=== PATIENT | female | born 1960 | race Asian ===

== ENCOUNTER → 2016-11-21 | Outpatient (CLI) | payer OTHER ==
[2016-11-21 07:58] LABS: BASOPHIL % 0.7 % (0-2); PLATELET COUNT 205 x10^3mcL (130-400); RED CELL DISTRIBUTION WIDTH 12.9 % (11.5-14.5)
[2016-11-21 08:16] LABS: ALBUMIN 3.9 g/dL (3.4-5.0); ALKALINE PHOSPHATASE 63 U/L (46-116); ALT/SGPT 28 U/L (14-59); AST/SGOT 14 U/L (15-37); BILIRUBIN TOTAL 0.3 mg/dL (0.20-1.00); C REACTIVE PROTEIN 0.4 mg/dL (<=0.9); CALCIUM 8.8 mg/dL (8.5-10.1); CARBON DIOXIDE 28.4 mmol/L (21-32); CHLORIDE SERUM 102 mmol/L (98-107); CREATININE SERUM 0.9 mg/dL (0.6-1.0); GFR1 > 60 mL/min; GLUCOSE SERUM 113 mg/dL (74-106); POTASSIUM SERUM 3.5 mmol/L (3.5-5.1); SODIUM SERUM 140 mmol/L (136-145); TOTAL PROTEIN, SERUM 7.3 g/dL (6.4-8.2)
[2016-11-21 08:28] LABS: UA SPECIFIC GRAVITY <=1.005 (1.005-1.035); microscopic required? YES; urine erythrocyte NEGATIVE (NEGATIVE)
[2016-11-21 12:34] LABS: ERYTHROCYTE SED RATE 24 mm/hr (0-30)
== END | disposition home or self-care (01) ==
LOC: LB 07:29
DX: M35.1 Other overlap syndromes (principal)
CPT/HCPCS: 85613

== ENCOUNTER → 2017-05-28 | Outpatient (CLI) | payer OTHER ==
[2017-05-28 16:28] LABS: BASOPHIL % 0.6 % (0-2); PLATELET COUNT 217 x10^3mcL (130-400); RED CELL DISTRIBUTION WIDTH 13.1 % (11.5-14.5)
[2017-05-28 16:34] LABS: ALBUMIN 4.1 g/dL (3.4-5.0); ALKALINE PHOSPHATASE 61 U/L (46-116); ALT/SGPT 26 U/L (14-59); AST/SGOT 20 U/L (15-37); BILIRUBIN TOTAL 0.37 mg/dL (0.20-1.00); CARBON DIOXIDE 29.5 mmol/L (21-32); CHLORIDE SERUM 104 mmol/L (98-107); CREATININE SERUM 0.9 mg/dL (0.6-1.0); GFR1 > 60 mL/min; GLUCOSE SERUM 98 mg/dL (74-106); POTASSIUM SERUM 3.3 mmol/L (3.5-5.1); SODIUM SERUM 140 mmol/L (136-145); TOTAL PROTEIN, SERUM 8.2 g/dL (6.4-8.2)
[2017-05-28 16:37] LABS: C REACTIVE PROTEIN < 0.2 mg/dL (<=0.9)
[2017-05-28 17:35] LABS: ERYTHROCYTE SED RATE 30 mm/hr (0-30)
== END | disposition home or self-care (01) ==
LOC: LB 14:45
PROVIDERS: Internal Medicine
DX: N39.0 Urinary tract infection, site not specified (principal)
CPT/HCPCS: 86200; 86235; 86431

== ENCOUNTER 2017-09-03 14:52 | Emergency (ER) | payer OTHER ==
[~2017-09-03] VITALS: Ht 160 cm; Wt 62.1 kg
[2017-09-03 14:59] VITALS: BP 148/95; Ht 160 cm; Wt 62.1 kg
== END 2017-09-03 18:25 | disposition home or self-care (01) ==
LOC: ED 14:52
DX: H10.13 Acute atopic conjunctivitis, bilateral (principal); M35.00 Sjogren syndrome, unspecified; I10 Essential (primary) hypertension

== ENCOUNTER 2017-10-22 05:35 | Emergency (ER) | payer OTHER ==
[2017-10-22 06:21] VITALS: BP 141/83
== END 2017-10-22 06:21 | disposition home or self-care (01) ==
LOC: ED 05:35
DX: J02.9 Acute pharyngitis, unspecified (principal); I10 Essential (primary) hypertension
CPT/HCPCS: J1885

== ENCOUNTER → 2017-12-28 | Outpatient (CLI) | payer OTHER ==
[2017-12-28 08:51] LABS: BASOPHIL % 0.6 % (0-2); PLATELET COUNT 218 x10^3mcL (130-400); RED CELL DISTRIBUTION WIDTH 13.4 % (11.5-14.5)
[2017-12-28 08:55] LABS: microscopic required? YES; urine erythrocyte NEGATIVE (NEGATIVE)
[2017-12-28 09:17] LABS: ALKALINE PHOSPHATASE 61 U/L (46-116); ALT/SGPT 40 U/L (14-59); AST/SGOT 23 U/L (15-37); BILIRUBIN TOTAL 0.4 mg/dL (0.20-1.00); CALCIUM 9.2 mg/dL (8.5-10.1); CARBON DIOXIDE 30.8 mmol/L (21-32); CHLORIDE SERUM 103 mmol/L (98-107); CREATININE SERUM 1.2 mg/dL (0.6-1.0); GFR1 49 mL/min; GLUCOSE SERUM 115 mg/dL (74-106); POTASSIUM SERUM 3.7 mmol/L (3.5-5.1); SODIUM SERUM 140 mmol/L (136-145); TOTAL PROTEIN, SERUM 7.8 g/dL (6.4-8.2)
[2017-12-28 09:18] LABS: C REACTIVE PROTEIN < 0.2 mg/dL (<=0.9)
[2017-12-28 10:01] LABS: ERYTHROCYTE SED RATE 38 mm/hr (0-30)
[2017-12-29 08:28] LABS: IMMUNOGLOBULIN A 232 mg/dL (87-352); IMMUNOGLOBULIN G (QUANT) 1528 mg/dL (700-1600); IMMUNOGLOBULIN M 62 mg/dL (26-217); VITAMIN D 25-HYDROXY 42.1 ng/mL (30.0-100.0)
[2017-12-29 09:13] LABS: RHEUMATOID ARTHRITIS FACTOR 28.6 IU/mL (0.0-13.9)
[2017-12-29 19:20] LABS: SJOGRENS A/SSA AB >8.0 AI (0.0-0.9); SJOGRENS ANTIBODIES (SSB) >8.0 AI (0.0-0.9)
== END | disposition home or self-care (01) ==
LOC: LB 07:51
DX: M35.1 Other overlap syndromes (principal); M35.00 Sjogren syndrome, unspecified; M54.5 Low back pain
CPT/HCPCS: 86200; 86225; 86235; 86431

== ENCOUNTER → 2018-05-18 | Outpatient (CLI) | payer OTHER ==
[2018-05-18 10:34] LABS: PLATELET COUNT 252 x10^3mcL (130-400); RED CELL DISTRIBUTION WIDTH 13.3 % (11.5-14.5)
[2018-05-18 10:45] LABS: ALBUMIN 4.1 g/dL (3.4-5.0); BILIRUBIN DIRECT 0.13 mg/dL (0.0-0.2); BILIRUBIN TOTAL 0.6 mg/dL (0.20-1.00); CARBON DIOXIDE 31.5 mmol/L (21-32); CREATININE SERUM 1.1 mg/dL (0.6-1.0); POTASSIUM SERUM 3.9 mmol/L (3.5-5.1)
[2018-05-18 10:49] LABS: CHOLESTEROL/HDL RATIO 5.2; TOTAL PROTEIN, SERUM 9.4 g/dL (6.4-8.2)
[2018-05-19 13:20] LABS: microalbumin:creatinine ratio 27.3 (0.0-30.0)
== END | disposition home or self-care (01) ==
LOC: LB 10:04
PROVIDERS: Internal Medicine
DX: Z00.00 Encounter for general adult medical examination without abnormal findings (principal)

== ENCOUNTER → 2018-05-26 | Outpatient (CLI) | payer OTHER | END | disposition home or self-care (01) | LOC: LB 15:08 | DX: R77.1 Abnormality of globulin (principal) ==

== ENCOUNTER → 2018-09-16 | Outpatient (CLI) | payer OTHER ==
[2018-09-16 14:36] LABS: BASOPHIL % 0.6 % (0-2); PLATELET COUNT 232 x10^3mcL (130-400); RED CELL DISTRIBUTION WIDTH 13.5 % (11.5-14.5)
[2018-09-16 14:41] LABS: UA SPECIFIC GRAVITY <=1.005 (1.005-1.035); microscopic required? YES; urine erythrocyte NEGATIVE (NEGATIVE)
[2018-09-16 15:10] LABS: BILIRUBIN TOTAL 0.3 mg/dL (0.20-1.00); CALCIUM 9.1 mg/dL (8.5-10.1); CARBON DIOXIDE 27.5 mmol/L (21-32); CREATININE SERUM 1.2 mg/dL (0.6-1.0); POTASSIUM SERUM 3.8 mmol/L (3.5-5.1)
[2018-09-16 15:12] LABS: TOTAL PROTEIN, SERUM 8.5 g/dL (6.4-8.2)
[2018-09-16 15:19] LABS: C REACTIVE PROTEIN 0.2 mg/dL (<=0.9)
[2018-09-16 16:04] LABS: ERYTHROCYTE SED RATE 52 mm/hr (0-30)
== END | disposition home or self-care (01) ==
LOC: LB 13:48
PROVIDERS: Internal Medicine
DX: M79.10 Myalgia, unspecified site (principal); M35.00 Sjogren syndrome, unspecified
CPT/HCPCS: 86480

== ENCOUNTER 2019-01-27 07:22 | Emergency (ER) | payer OTHER ==
[~2019-01-27] VITALS: Ht 157.5 cm; Wt 58.5 kg
[2019-01-27 07:29] VITALS: BP 139/76; Ht 157.5 cm; Wt 58.5 kg
== END 2019-01-27 09:31 | disposition home or self-care (01) ==
LOC: ED 07:22
DX: K11.20 Sialoadenitis, unspecified (principal); I10 Essential (primary) hypertension

== ENCOUNTER → 2019-02-18 | Outpatient (CLI) | payer OTHER | END | disposition home or self-care (01) | LOC: RD 15:27 | DX: R76.11 Nonspecific reaction to tuberculin skin test without active tuberculosis (principal) ==

== ENCOUNTER → 2019-03-25 | Outpatient (CLI) | payer OTHER ==
[2019-03-25 08:32] LABS: BASOPHIL % 0.8 % (0-2); PLATELET COUNT 194 x10^3mcL (130-400); RED CELL DISTRIBUTION WIDTH 13.4 % (11.5-14.5)
[2019-03-25 08:36] LABS: UA SPECIFIC GRAVITY <=1.005 (1.005-1.035); microscopic required? YES; urine erythrocyte TRACE (NEGATIVE)
[2019-03-25 08:53] LABS: ALBUMIN 3.8 g/dL (3.4-5.0); BILIRUBIN TOTAL 0.24 mg/dL (0.20-1.00); CALCIUM 8.9 mg/dL (8.5-10.1); CARBON DIOXIDE 25.3 mmol/L (21-32); CREATININE SERUM 1.1 mg/dL (0.6-1.0); POTASSIUM SERUM 3.4 mmol/L (3.5-5.1)
[2019-03-25 09:30] LABS: C REACTIVE PROTEIN 0.6 mg/dL (<=0.9)
[2019-03-25 10:58] LABS: ERYTHROCYTE SED RATE 48 mm/hr (0-30)
[2019-03-26 17:05] LABS: SJOGRENS A/SSA AB >8.0 AI (0.0-0.9); SJOGRENS ANTIBODIES (SSB) >8.0 AI (0.0-0.9); rnp antibodies (ena) 0.2 AI (0.0-0.9); smith antibodies (ena) 0.3 AI (0.0-0.9)
== END | disposition home or self-care (01) ==
LOC: LB 07:42
DX: M35.00 Sjogren syndrome, unspecified (principal)
CPT/HCPCS: 86235

== ENCOUNTER → 2019-08-05 | Outpatient (CLI) | payer OTHER ==
[2019-08-05 09:16] LABS: BASOPHIL % 1.1 % (0-2); PLATELET COUNT 234 x10^3mcL (130-400); RED CELL DISTRIBUTION WIDTH 12.8 % (11.5-14.5)
[2019-08-05 10:09] LABS: ALBUMIN 3.8 g/dL (3.4-5.0); BILIRUBIN TOTAL 0.49 mg/dL (0.20-1.00); CALCIUM 8.4 mg/dL (8.5-10.1); CARBON DIOXIDE 27.2 mmol/L (21-32); CREATININE SERUM 1.2 mg/dL (0.6-1.0); POTASSIUM SERUM 3.3 mmol/L (3.5-5.1); UA SPECIFIC GRAVITY 1.025 (1.005-1.035); microscopic required? YES; urine erythrocyte NEGATIVE (NEGATIVE)
[2019-08-05 10:10] LABS: CHOLESTEROL/HDL RATIO 4.5; TOTAL PROTEIN, SERUM 8.5 g/dL (6.4-8.2)
[2019-08-05 16:38] LABS: CREATININE UR 123.8 mg/dL
== END | disposition home or self-care (01) ==
LOC: LB 07:36
PROVIDERS: Internal Medicine
DX: I12.9 Hypertensive chronic kidney disease with stage 1 through stage 4 chronic kidney disease, or unspecified chronic kidney disease (principal); N18.3 Chronic kidney disease, stage 3 (moderate); D63.1 Anemia in chronic kidney disease

== ENCOUNTER → 2020-01-25 | Outpatient (CLI) | payer OTHER ==
[2020-01-25 11:54] LABS: BASOPHIL % 0.7 % (0-2); PLATELET COUNT 222 x10^3mcL (130-400); RED CELL DISTRIBUTION WIDTH 12.9 % (11.5-14.5)
[2020-01-25 12:16] LABS: ALBUMIN 4.2 g/dL (3.4-5.0); ALKALINE PHOSPHATASE 50 U/L (46-116); ALT/SGPT 25 U/L (14-59); AST/SGOT 23 U/L (15-37); BILIRUBIN TOTAL 0.4 mg/dL (0.20-1.00); CALCIUM 9.2 mg/dL (8.5-10.1); CARBON DIOXIDE 29.2 mmol/L (21-32); CHLORIDE SERUM 102 mmol/L (98-107); CREATININE SERUM 1.5 mg/dL (0.6-1.0); GFR1 38 mL/min; GLUCOSE SERUM 99 mg/dL (74-106); POTASSIUM SERUM 3.7 mmol/L (3.5-5.1); SODIUM SERUM 139 mmol/L (136-145)
[2020-01-25 13:01] LABS: TOTAL PROTEIN, SERUM 9.1 g/dL (6.4-8.2)
[2020-01-25 13:30] LABS: C REACTIVE PROTEIN < 0.2 mg/dL (<=0.9)
[2020-01-26 07:06] LABS: IMMUNOGLOBULIN A 350 mg/dL (87-352); IMMUNOGLOBULIN G (QUANT) 2456 mg/dL (586-1602); IMMUNOGLOBULIN M 67 mg/dL (26-217)
[2020-01-26 13:05] LABS: SJOGRENS A/SSA AB >8.0 AI (0.0-0.9); SJOGRENS ANTIBODIES (SSB) >8.0 AI (0.0-0.9); rnp antibodies (ena) 0.3 AI (0.0-0.9); smith antibodies (ena) 0.3 AI (0.0-0.9)
== END | disposition home or self-care (01) ==
LOC: LB 09:52
PROVIDERS: Internal Medicine
DX: M54.9 Dorsalgia, unspecified (principal); M06.9 Rheumatoid arthritis, unspecified; E06.9 Thyroiditis, unspecified; E53.9 Vitamin B deficiency, unspecified; E55.9 Vitamin D deficiency, unspecified; Z79.899 Other long term (current) drug therapy
CPT/HCPCS: 85613; 86200; 86225; 86235; 86431

== ENCOUNTER → 2020-04-25 | Outpatient (CLI) | payer OTHER ==
[2020-04-25 08:56] LABS: ALBUMIN 4.1 g/dL (3.4-5.0); BILIRUBIN TOTAL 0.38 mg/dL (0.20-1.00); C REACTIVE PROTEIN 0.7 mg/dL (<=0.9); CALCIUM 8.8 mg/dL (8.5-10.1); CARBON DIOXIDE 15.8 mmol/L (21-32); CREATININE SERUM 1.8 mg/dL (0.6-1.0)
[2020-04-25 08:57] LABS: CHOLESTEROL/HDL RATIO 5.1; TOTAL PROTEIN, SERUM 8.9 g/dL (6.4-8.2)
[2020-04-25 09:09] LABS: PLATELET COUNT 224 x10^3mcL (130-400); RED CELL DISTRIBUTION WIDTH 13.1 % (11.5-14.5)
[2020-04-25 09:12] LABS: microscopic required? YES; urine erythrocyte TRACE (NEGATIVE)
[2020-04-25 09:48] LABS: ERYTHROCYTE SED RATE 72 mm/hr (0-30)
[2020-04-26 08:06] LABS: IMMUNOGLOBULIN A 337 mg/dL (87-352); IMMUNOGLOBULIN G (QUANT) 2321 mg/dL (586-1602); IMMUNOGLOBULIN M 58 mg/dL (26-217)
== END | disposition home or self-care (01) ==
LOC: LB 07:24
DX: M06.9 Rheumatoid arthritis, unspecified (principal); Z79.899 Other long term (current) drug therapy

== ENCOUNTER → 2020-05-16 | Outpatient (CLI) | payer OTHER ==
[2020-05-16 08:40] LABS: microscopic required? NO
[2020-05-16 08:56] LABS: PLATELET COUNT 235 x10^3mcL (130-400)
[2020-05-16 09:27] LABS: ALKALINE PHOSPHATASE 45 U/L (46-116); ALT/SGPT 21 U/L (14-59); AST/SGOT 17 U/L (15-37); BILIRUBIN TOTAL 0.5 mg/dL (0.20-1.00); CARBON DIOXIDE 29.8 mmol/L (21-32); CHLORIDE SERUM 104 mmol/L (98-107); CREATININE SERUM 1.6 mg/dL (0.6-1.0); GFR1 35 mL/min; GLUCOSE SERUM 103 mg/dL (74-106); POTASSIUM SERUM 3.4 mmol/L (3.5-5.1); SODIUM SERUM 138 mmol/L (136-145)
[2020-05-16 09:40] LABS: urine erythrocyte NEGATIVE (NEGATIVE)
[2020-05-16 10:22] LABS: C REACTIVE PROTEIN < 0.2 mg/dL (<=0.9)
== END | disposition home or self-care (01) ==
LOC: US 08:33
PROC: BH4CZZZ Ultrasonography of Head and Neck (ICD-10-PCS; principal; 2020-05-16)
PROC: BW4GZZZ Ultrasonography of Pelvic Region (ICD-10-PCS; 2020-05-16)
PROC: BW40ZZZ Ultrasonography of Abdomen (ICD-10-PCS; 2020-05-16)
DX: C85.91 Non-Hodgkin lymphoma, unspecified, lymph nodes of head, face, and neck (principal); R63.4 Abnormal weight loss; M35.00 Sjogren syndrome, unspecified
CPT/HCPCS: 85613

== ENCOUNTER → 2020-05-18 | Outpatient (CLI) | payer OTHER | END | disposition home or self-care (01) | LOC: US 11:51 | PROVIDERS: ATTEND Internal Medicine | PROC: BG44ZZZ Ultrasonography of Thyroid Gland (ICD-10-PCS; principal; 2020-05-18) | DX: E04.1 Nontoxic single thyroid nodule (principal) ==

== ENCOUNTER → 2020-05-24 | Outpatient (CLI) | payer OTHER | END | disposition home or self-care (01) | LOC: CT 13:20 | PROVIDERS: ATTEND Internal Medicine | PROC: BW25ZZZ Computerized Tomography (CT Scan) of Chest, Abdomen and Pelvis (ICD-10-PCS; principal; 2020-05-24) | DX: C85.90 Non-Hodgkin lymphoma, unspecified, unspecified site (principal) ==

== ENCOUNTER → 2020-06-11 | Outpatient (CLI) | payer OTHER ==
[2020-06-11 16:35] LABS: BASOPHIL % 0.4 % (0-2); PLATELET COUNT 246 x10^3mcL (130-400); RED CELL DISTRIBUTION WIDTH 13.6 % (11.5-14.5)
[2020-06-11 16:58] LABS: ALBUMIN 4.1 g/dL (3.4-5.0); ALKALINE PHOSPHATASE 52 U/L (46-116); ALT/SGPT 43 U/L (14-59); AST/SGOT 24 U/L (15-37); BILIRUBIN TOTAL 0.3 mg/dL (0.20-1.00); CALCIUM 9.3 mg/dL (8.5-10.1); CARBON DIOXIDE 27.9 mmol/L (21-32); CHLORIDE SERUM 102 mmol/L (98-107); CREATININE SERUM 1.4 mg/dL (0.6-1.0); GFR1 41 mL/min; GLUCOSE SERUM 117 mg/dL (74-106); POTASSIUM SERUM 3.9 mmol/L (3.5-5.1); SODIUM SERUM 137 mmol/L (136-145)
[2020-06-11 17:06] LABS: TOTAL PROTEIN, SERUM 8.8 g/dL (6.4-8.2)
== END | disposition home or self-care (01) ==
LOC: LB 15:47
DX: D72.820 Lymphocytosis (symptomatic) (principal)
CPT/HCPCS: 83883

== ENCOUNTER → 2020-06-20 | Outpatient (CLI) | payer OTHER ==
[2020-06-21 09:10] LABS: IMMUNOGLOBULIN A 298 mg/dL (87-352); IMMUNOGLOBULIN G (QUANT) 1770 mg/dL (586-1602); IMMUNOGLOBULIN M 50 mg/dL (26-217)
[2020-06-21 15:10] LABS: protein (ife24hr calculation) < 66 mg/24 hr (30-150); total protein urine (pep) < 4.0 mg/dL (Not Estab.)
== END | disposition home or self-care (01) ==
LOC: LB 10:08
DX: D47.2 Monoclonal gammopathy (principal)
CPT/HCPCS: 82785; 84156; 84166; 86335

== ENCOUNTER → 2020-07-03 | Outpatient (CLI) | payer OTHER ==
[2020-07-03 08:41] LABS: microscopic required? NO
[2020-07-03 08:50] LABS: UA SPECIFIC GRAVITY 1.015 (1.005-1.035); urine erythrocyte NEGATIVE (NEGATIVE)
[2020-07-03 08:57] LABS: BASOPHIL % 0.5 % (0-2); PLATELET COUNT 274 x10^3mcL (130-400); RED CELL DISTRIBUTION WIDTH 13.8 % (11.5-14.5)
[2020-07-03 09:30] LABS: ALBUMIN 3.6 g/dL (3.4-5.0); BILIRUBIN TOTAL 0.37 mg/dL (0.20-1.00); CALCIUM 8.8 mg/dL (8.5-10.1); CARBON DIOXIDE 29.1 mmol/L (21-32); CREATININE SERUM 1.3 mg/dL (0.6-1.0); FREE T4 1.17 ng/dL (0.76-1.46); MAGNESIUM 2.3 mg/dL (1.8-2.4); POTASSIUM SERUM 3.1 mmol/L (3.5-5.1); TOTAL PROTEIN, SERUM 7.9 g/dL (6.4-8.2); URIC ACID 5.5 mg/dL (2.6-6.0)
== END | disposition home or self-care (01) ==
LOC: LB 08:10
PROVIDERS: ATTEND Internal Medicine
DX: I12.9 Hypertensive chronic kidney disease with stage 1 through stage 4 chronic kidney disease, or unspecified chronic kidney disease (principal); D63.1 Anemia in chronic kidney disease
CPT/HCPCS: 84439

== ENCOUNTER → 2020-07-19 | Outpatient (CLI) | payer OTHER | END | disposition home or self-care (01) | LOC: RD 09:29 | DX: N20.0 Calculus of kidney (principal) ==

== ENCOUNTER → 2020-10-08 | Outpatient (CLI) | payer OTHER ==
[2020-10-08 08:49] LABS: PLATELET COUNT 242 x10^3mcL (179-408); RED CELL DISTRIBUTION WIDTH 13.4 % (12.3-17.7)
[2020-10-08 08:56] LABS: UA SPECIFIC GRAVITY >=1.030 (1.005-1.035); microscopic required? YES; urine erythrocyte NEGATIVE (NEGATIVE)
[2020-10-08 09:09] LABS: ALBUMIN 3.8 g/dL (3.4-5.0); ALKALINE PHOSPHATASE 46 U/L (46-116); ALT/SGPT 36 U/L (14-59); AST/SGOT 24 U/L (15-37); CALCIUM 8.8 mg/dL (8.5-10.1); CARBON DIOXIDE 28.7 mmol/L (21-32); CHLORIDE SERUM 104 mmol/L (98-107); CREATININE SERUM 1.4 mg/dL (0.6-1.0); GFR1 40 mL/min; GLUCOSE SERUM 95 mg/dL (74-106); HDL CHOLESTEROL 60 mg/dL (40-60); MAGNESIUM 2.2 mg/dL (1.8-2.4); SODIUM SERUM 142 mmol/L (136-145); TOTAL PROTEIN, SERUM 7.6 g/dL (6.4-8.2)
[2020-10-08 09:17] LABS: POTASSIUM SERUM 2.8 mmol/L (3.5-5.1)
[2020-10-08 09:18] LABS: CHOLESTEROL 268 mg/dL (<200); CHOLESTEROL/HDL RATIO 4.5; TRIGLYCERIDES 222 mg/dL (<150)
[2020-10-08 09:28] LABS: C REACTIVE PROTEIN < 2.0 mg/dL (<=0.9)
[2020-10-08 12:09] LABS: ERYTHROCYTE SED RATE 46 mm/hr (0-30)
[2020-10-09 08:06] LABS: COMPLEMENT C3 118 mg/dL (82-167); COMPLEMENT C4 24 mg/dL (12-38); IMMUNOGLOBULIN A 262 mg/dL (87-352); IMMUNOGLOBULIN G (QUANT) 1447 mg/dL (586-1602); IMMUNOGLOBULIN M 45 mg/dL (26-217)
== END | disposition home or self-care (01) ==
LOC: LB 07:53
PROVIDERS: ATTEND Internal Medicine
DX: N20.0 Calculus of kidney (principal)